=== PATIENT | male | born 1990 | race Caucasian/White ===

== ENCOUNTER 2023-05-13 02:33 | Emergency (ER) | payer SELFPAY ==
[2023-05-13 02:35] VITALS: BP 137/89; PULSE 100; RESP 20; TEMP 36.9; O2SAT 99; BMI 30.8
[2023-05-13 02:58] VITALS: BP 137/89; PULSE 95; RESP 16; O2SAT 98
--- NOTE | 2023-05-13 03:01 | PC.NURSE ---
[facility] staff at bedside, [facility] L [facility].
--- NOTE | 2023-05-13 03:13 | ED_ITS ---
HPI - Skin/Abscess/Foreign Bdy General: Chief complaint: Skin/Abscess/Foreign Body Stated complaint: Left Arm Pain Time Seen by Provider: 05/13/23 02:39 History of Present Illness: 33-year-old male patient here with redness, pain, and swelling to the right posterior elbow. He notes this started 3 to 4 days ago. Swelling is worsened over time. There are tender lumps proximal to the elbow present. He has been on Bactrim without improvement. No fever, no vomiting. Associated symptoms: Deny fever(s) or vomiting Review of Systems Const: Denies: fever(s) ENMT: Denies: throat pain Card: Denies: chest pain Resp: Denies: dyspnea GI: Denies: abdominal pain or vomiting Skin/Breast: Reports: rash and erythema PFSH ED PFSH: Medical History Psychiatric care Physical Exam Const: COMMON NORMALS: no acute distress GENERAL APPEARANCE: cooperative; not ill appearing and not frail appearing HENMT: COMMON NORMALS: normocephalic, atraumatic and Normal external nose present HEAD & SCALP: normocephalic and atraumatic FACE & SINUS: normal facial exam and face symmetric NOSE: Normal external nose present Eye: COMMON NORMALS: Equal, round and reactive pupils present and EOMs intact bilaterally PUPIL: Yes Equal, round and reactive pupils present Neck/C-Spine: GENERAL: Yes trachea midline Chest: CHEST: Yes Symmetrical chest wall rise Resp: COMMON NORMALS: normal respiratory effort, No retractions and No use of accessory muscles Cardio: COMMON NORMALS: regular rate and regular rhythm RATE: regular rate RHYTHM: regular rhythm Extremity: NARRATIVE EXTREMITY EXAM: Examination of the right upper extremity reveals posterior elbow tenderness, swelling, and beefy redness. Fluctuant area present. Epitrochlear lymph nodes are present as well. Neuro: OLU COMA SCALE: document GCS findings Olu coma scale eye opening: Spontaneous [place] coma scale verbal response: Orientated Olu coma scale motor response: Obey commands Olu coma scale total score: 15 SENSORY EXAM: Yes extremities (intact) Psych: COMMON NORMALS: speech normal SPEECH: Yes normal speech Skin: COMMON NORMALS: no rashes or lesions noted GENERAL SKIN EXAM: no rashes or lesions noted Procedures Abscess I/D Site: upper extremity Side (if applicable): right Local Anesthetic: lidocaine 1% and with epi Amount of anesthesia used (mL): 6 Technique: incised with #11 blade Amount of fluid expressed (mL): 20 Irrigation: Yes Packing used?: none Course Vital Signs: Vital signs: Vital Signs Temperature 98.4 F 05/13/23 02:35 Pulse Rate 102 H 05/13/23 04:04 Respiratory Rate 17 05/13/23 04:04 Blood Pressure 127/73 05/13/23 04:04 Pulse Oximetry 97 05/13/23 04:04 Oxygen Delivery Me thod Room Air 05/13/23 02:58 MDM - Skin/Abscess/Foreign Bdy Medicial Decision Making Small olecranon abscess I&D. Will increase dosage of Bactrim DS to 2 pills t wice a day. Patient asked for ibuprofen for pain control, will comply. Wound check in 48 hours. Covered with gauze, nonstick, and Coban after placement of mupirocin at the wound. Return for worsening symptoms. Slightly concerning, as this is over his olecranon bursa. Discharge Plan Discharge Patient Disposition: Home Clinical Impression: Cellulitis, Abscess of skin or subcutaneous tissue Condition: Stable Prescriptions: New Bactrim DS 800-160 mg tablet 2 tab PO BID 10 Days Qty: 40 0RF ibuprofen 800 mg tablet 800 mg PO TID Qty: 30 0RF Discharge Orders: Discharge ED (Routine); Ordered 05/13/23 Ordered By: Darrel Nascimento Patient Instructions: Abscess (ED), Pain Management Activity Restrictions/Additional Instructions: Dressing changes as shown in the ER. Medications as directed. You may wash with soap and running water. Do not soak. Follow-up as directed for a wound check in 2 days. Case management will make you an appointment and give you a call regarding such. Return for fever greater than 100 despite 2 2 more doses or more of antibiotics, spreading redness or streaking despite 2 more doses or more of antibiotics, worsening pain despite the above, or any other concerning symptoms. Coding Level of Care Code ED Printing Plate Setter for Natasha Zarate
[2023-05-13] MEDS: ketorolac 10 mg Tablet PO (03:32)
[2023-05-13 04:04] VITALS: BP 127/73; PULSE 102; RESP 17; O2SAT 97
[2023-05-13] MEDS: mupirocin oint 22 gm 1 APPLIC TOPICAL (04:04)
[2023-05-13] MEDS: sulfamethoxazole-trimeth DS 160-800 mg Tablet 2 TAB PO (04:04)
--- NOTE | 2023-05-16 12:13 | DCPLANNER ---
Nurse from residential called geriatric case manager about follow up appointment. manager product marketing was told that the nurse at the residential will watch patient and determine if he will need a follow up. If patient needs a follow up, the nurse will call geriatric case manager to arrange follow up appointment as needed.
== END 2023-05-13 04:12 | disposition home or self-care (01) ==
PROVIDERS: Emergency Provider Emergency Medicine
DX: L03.113 Cellulitis of right upper limb (principal); L02.413 Cutaneous abscess of right upper limb
CPT/HCPCS: 10060; 99283